=== PATIENT | female | born 1975 | race Caucasian/White ===

== ENCOUNTER 2023-01-14 12:41 | Emergency (ER) | payer OTHER, BC ==
[2023-01-14 12:52] VITALS: BP 116/84; PULSE 91; RESP 18; TEMP 97.8; BMI 33.3
[2023-01-14] MEDS ORDERED: SODIUM CHLORIDE 0.9% 500 ML INFUS.BAG IV ONE (13:33)
[2023-01-14] MEDS ORDERED: ONDANSETRON *ODT* 4 MG TABLET SL ONE (13:33)
[2023-01-14] MEDS ORDERED: ONDANSETRON *ODT* 4 MG TABLET ONE (13:46)
[2023-01-14 14:18] LABS: BASO % 0.2 % (0-2.0); HEMATOCRIT 41.2 % (32.4-45.2); HEMOGLOBIN 13.7 GM/dL (10.7-15.3); LYMPH % 23.7 % (8-40); MCH 28.5 pg (25.7-33.7); MCHC 33.3 g/dl (32.0-36.0); MEAN CELL VOLUME 85.4 fl (80-96); MEAN PLT VOLUME 7.8 fl (7.5-11.1); MONO % 9.5 % (3.8-10.2); NEUT % 66.6 % (42.8-82.8); PLATELET COUNT 211 10^3/uL (134-434); RBC 4.83 M/mm3 (3.60-5.2); RDW 14.1 % (11.6-15.6); WHITE BLOOD COUNT 6.6 K/mm3 (4.0-10.0)
[2023-01-14 14:34] LABS: POTASSIUM 4.2 mmol/L (3.5-5.1)
[2023-01-14 14:36] LABS: ALBUMIN 3.8 g/dl (3.4-5.0); CALCIUM 9.2 mg/dL (8.5-10.1)
[2023-01-14 14:37] LABS: MAGNESIUM 1.9 mg/dL (1.8-2.4)
[2023-01-14 14:39] LABS: CREATININE 0.5 mg/dL (0.55-1.3); PHOSPHOROUS 3.6 mg/dL (2.5-4.9)
[2023-01-14 14:41] LABS: BILIRUBIN,TOTAL 0.3 mg/dL (0.2-1); TOT PROT 6.7 g/dl (6.4-8.2)
== END 2023-01-14 15:53 | disposition home or self-care (01) ==
LOC: JER 12:41
DX: R10.10 Upper abdominal pain, unspecified (principal); R11.0 Nausea; R51.9 Headache, unspecified; K52.9 Noninfective gastroenteritis and colitis, unspecified
CPT/HCPCS: 36415; 80053; 83690; 83735; 84100; 85025; 99284-25; Q0162